=== PATIENT | male | born 1970 | race Caucasian/White ===

== ENCOUNTER 2022-12-25 10:12 | Emergency (ER) | payer OTHER, SELFPAY ==
[2022-12-25 10:22] VITALS: BP 208/122; PULSE 98; RESP 16; TEMP 36.9; O2SAT 99
--- NOTE | 2022-12-25 10:49 | ED.SKABFB ---
HPI - Skin/Abscess/Foreign Bdy General Chief complaint: Skin/Abscess/Foreign Body Stated complaint: Skin Sore Source: patient and RN notes reviewed History of Present Illness HPI narrative: 52 yo M presents to urgent care with complaints of a generalized rash x 1 year but states it got worse over the last couple weeks. Pt states it feels like something is crawling under his skin and it will itch every once in awhile. Pt denies any suspected chemical exposure. Denies any fevers or chills. Pt has not taken anything for his rash. Pt is also noted to be hypertensive in dept. Denies any JACOBS, dizziness, chest pain, SOB, blurry vision, numbness, or tingling. Pt states he is supposed to be on meds but hasn't taken it in 2 years. Pt states he is scheduled to follow up with his PCP later this month. Related Data Allergies Allergy/AdvReac Type Severity Reaction Status Date / Time No Known Allergies Allergy Unverified 12/15/16 10:31 Review of Systems Review of Systems: CONSTITUTIONAL: Denies fever, chills, or sweats. EYES: Denies visual changes, redness, or discharge. ENT: Denies otalgia and sore throat CARDIOVASCULAR: Denies chest pain, palpitations, or edema. RESPIRATORY: Denies cough or dyspnea. GASTROINTESTINAL: Denies abdominal pain, nausea, vomiting, or diarrhea. GENITOURINARY: Denies dysuria or hematuria. SKIN: Rash MUSCULOSKELETAL: Denies back pain, joint pain, or myalgia. NEUROLOGIC: Denies headache, numbness, or weakness. Pertinent positives per HPI. PMFSH Comments At the time of my signature, I reviewed and agree with the nursing past medical, surgical, social, and family history. There is no relevant family history pertinent to the patient complaint. Exam Narrative: GENERAL: This is a well-nourished, well-developed patient, in no apparent distress. HEAD: normocephalic, atraumatic. EYES: Sclera clear/white. Vision is grossly intact. EARS: External ears normal, auditory canals clear and without drainage, TMs normal without perforation. Hearing grossly intact. NOSE: External nose normal with no obvious nasal discharge, nares without redness, no rhinorrhea. THROAT: Mucous membranes moist, posterior pharynx clear. NECK: Neck supple, non-tender without lymphadenopathy, masses or thyromegaly. CARDIOVASCULAR: Regular rate and rhythm without murmurs, gallops, or rubs. RESPIRATORY: Clear to auscultation. Breath sounds equal bilaterally. No wheezes, rales, or rhonchi. GASTROINTESTINAL: Abdomen soft, non-tender, nondistended. Bowel sounds are active. No hepato-splenomegaly, or palpable masses. No guarding. SKIN: Random, dry, skin to bilateral hands. no other rash noted on body. NEURO: awake, alert, and oriented to person, place and time. There were no obvious focal neurologic abnormalities. EXTREMITIES: No clubbing, cyanosis, or edema. No joint tenderness, effusion, or edema noted. BACK: Nontender without deformity or crepitus. No flank tenderness. Course Course Level of Care: Express Care Visit Vital Signs Vital signs: Vital Signs Temperature 98.5 F 12/25/22 10:22 Pulse Rate 98 12/25/22 10:22 Respiratory Rate 16 12/25/22 10:22 Blood Pressure 208/122 H 12/25/22 10:22 Pulse Oximetry 99 12/25/22 10:22 Oxygen Delivery Room Air 12/25/22 10:22 Temperature 98.5 F 12/25/22 10:22 Pulse Rate 98 12/25/22 10:22 Respiratory Rate 16 12/25/22 10:22 Blood Pressure 208/122 H 12/25/22 10:22 Pulse Oximetry 99 12/25/22 10:22 Oxygen Delivery Room Air 12/25/22 10:22 Reviewed MDM - Skin/Abscess/Foreign Bdy MDM Narrative Medical decision making narrative: Pt's BP was retaken and noted to still be high. It was recommended pt be seen in the ER and have a workup completed. Pt refused to go. Pt agreed to sign AMA form. Pt informed he could leave and have a CVA, heart attack, or even . Pt gave verbal understanding and states he will call his PCP today to see if he could get in ea
--- NOTE | 2022-12-25 11:04 | PC.NURSE ---
lt arm automatic 194/122 rt arm manual 220/124. pt declines transfer to ED
== END 2022-12-25 11:14 | disposition left against medical advice (07) ==
PROVIDERS: Emergency Provider Nurse Practitioner Family; PCP Family Medicine
DX: R21 Rash and other nonspecific skin eruption (principal); I16.0 Hypertensive urgency; I10 Essential (primary) hypertension
CPT/HCPCS: 99203; G0463